=== PATIENT | male | born 1970 | race African-American/Black ===

== ENCOUNTER 2016-10-17 11:05 | Outpatient (CLI) | payer BC ==
[~2016-10-17 11:05] MED LIST: Iopamidol 370 76% 100 ML VIAL ONE
--- NOTE | 2016-10-17 20:53 | CT ---
CT ABDOMEN AND PELVIS WITH CONTRAST: Date: 10-17-16 Technique: Spiral CT of the abdomen and pelvis was done using oral and IV contrast in this patient with testicular swelling and lower quadrant pain. Axial slices were acquired and then coronal and s agittal reconstructions were done. FINDINGS: The lung bases are clear. No mass, effusion or focal pulmonary pathology was seen. The liver, sple en, pancreas, gallbladder, adrenal glands, kidneys, and abdominal aorta showed no acute findings. T here is no sign of aortic adenopathy around the renal region or elsewhere. The bowel is nondistended. The mesentery appears normal. The appendix appears normal. There is no increase in mesenteric nodes. There is no sign of inflammatory change in the bowel, diverticulitis or similar diseases. A rare diverticulum is seen in the left colon without finding of diverticulit is. CT of the pelvis showed no pelvic masses, adenopathy, or free fluid. No inflammatory changes were s een. The scans went down into the scrotum somewhat. Left testicle seems enlarged and fluid is seen aroun d it. It is difficult to definitely identify the left testicle on this scan, either in the scrotum or elsewhere. Ultrasound would be much more sensitive and specific in evaluating the testicles and their blood flow. IMPRESSION: 1. Enlargement of the right testicle with surrounding fluid. Ultrasound needed for further definit wolf. Left testicle not definitely seen. 2. No evidence of intraabdominal or pelvis mass or inflammatory change. 3. Mild diverticulosis of the left colon. POS: HOME
== END 2016-10-17 11:06 | disposition home or self-care (01) ==
LOC: BURCT 11:05
PROVIDERS: ATTEND Family Medicine
DX: N50.89 Other specified disorders of the male genital organs (principal); N44.8 Other noninflammatory disorders of the testis; K57.30 Diverticulosis of large intestine without perforation or abscess without bleeding
CPT/HCPCS: 36415; 74177; 82565

== ENCOUNTER 2016-10-18 11:03 | Outpatient (CLI) | payer BC ==
--- NOTE | 2016-10-18 22:46 | ULT ---
TESTICULAR ULTRASOUND 10/18/16 Ultrasonography of the scrotum was performed for evaluation of right sided pain. Comparison is made with a recent CT scan. The right testicle measures 5.1 x 3.1 x 3.4 cm and seems slightly enlarged. Internally, however, it appears normal. There was no sign of mass, fluid collection, or other abnormality. Blood flow was pr esent to this testicle and actually seems increased over normal. The right epididymis is large with the head measuring up to 1.9 cm in size and there is abundant flow here. There is a moderate sized h ydrocele around the right testicle. The left testicle was more normal in size at 4.2 x 2.2 x 3.3 cm. The left epididymis is more normal in size though the head is still 1.3 cm wide. Flow is normal on this side. A trace of fluid is seen around this testicle. IMPRESSION: Mild enlargement of the right testicle without internal findings. A definitely enlarged right epidid ymis with increased flow to the right testicle and epididymis. A moderate right hydrocele. One shoul d consider the possibility or orchitis and/or epididymitis on the right side. POS: HOME
== END 2016-10-18 11:04 | disposition home or self-care (01) ==
LOC: BURULT 11:03
PROVIDERS: ATTEND Family Medicine
DX: N50.89 Other specified disorders of the male genital organs (principal); N43.3 Hydrocele, unspecified; N44.8 Other noninflammatory disorders of the testis
CPT/HCPCS: 76870; 93976